=== PATIENT | female | born 1945 ===

== ENCOUNTER 2018-06-11 10:55 | Observation (INO) | payer OTHER, SELFPAY ==
[2018-06-11 11:50] LABS: BASO # 0.1 K/uL (0.0-0.2); EOS # 0.3 K/uL (0.0-0.7); EOS % 5.4 % (0.0-4.0); HEMOGLOBIN 13.3 g/dL (12.0-16.0); LYMPH # 2.6 K/uL (1.0-4.3); LYMPH % 45.9 % (20.0-40.0); MEAN CELL VOLUME 92.2 fl (81.0-99.0); MEAN CORPUSCULAR HEMOGLOBIN 30.9 pg (27.0-31.0); MEAN CORPUSCULAR HGB CONC 33.5 g/dL (33.0-37.0); MEAN PLATELET VOLUME 8.6 fl (7.2-11.7); MONO # 0.3 K/uL (0.0-0.8); MONO % 5.9 % (0.0-10.0); NEUT # 2.4 K/uL (1.8-7.0); NEUT % 41.8 % (50.0-75.0); NRBC % 0.1 % (0.0-0.0); RBC 4.32 Mil/uL (3.80-5.20); RED CELL DISTRIBUTION WIDTH 15.1 % (11.5-14.5); WHITE BLOOD COUNT 5.7 K/uL (4.8-10.8)
[2018-06-11 12:03] LABS: ALB/GLOB RATIO 1.4 (1.0-2.1); ALBUMIN 4.4 g/dL (3.5-5.0); ALT/SGPT 40 U/L (9-52); AST/SGOT 43 U/L (14-36); BLOOD UREA NITROGEN 23 mg/dl (7-17); CALCIUM 9.5 mg/dL (8.4-10.2); GFR AFRICAN-AMERICAN > 60; GFR NON-AFRICAN AMERICAN > 60
--- NOTE | 2018-06-11 13:17 | ED PDOC ---
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 Patient is currently complaining of generalized weakness. Upon arrival to ED patient's pulse is normal currently in the 60s. Patient does report having palpitations yesterday. No further medical complaints. PMD: [facility] Past Medical History Reviewed: Historical Data, Nursing Documentation, Vital Signs Vital Signs: Last Vital Signs Temp 97.6 F 06/13/18 12:00 Pulse 57 L 06/13/18 12:00 Resp 20 06/13/18 12:00 BP 132/72 06/13/18 12:00 Pulse Ox 97 06/14/18 19:28 - Medical History PMH: HTN Other PMH: varicose veins - Surgical History Surgical History: No Surg Hx - Family History Family History: States: Unknown Family Hx - Social History Current smoker - smoking cessation education provided: No Alcohol: None Drugs: Denies - Home Medications Home Medications: Ambulatory Orders Medication Instructions Recorded Aspirin [Ecotrin] 81 mg PO DAILY 06/11/18 Levothyroxine [Synthroid] 100 mcg PO DAILY@0630 #30 tab 06/13/18 - Allergies Allergies/Adverse Reactions: Allergies Allergy/AdvReac Type Severity Reaction Status Date / Time No Known Allergies Allergy Verified 06/11/18 10:59 Review of Systems ROS Statement: Except As Marked, All Systems Reviewed And Found Negative Constitutional: Positive for: Weakness (generalized) Cardiovascular: Positive for: Palpitations Physical Exam - Reviewed Nursing Documentation Reviewed: Yes Vital Signs Reviewed: Yes - Physical Exam Appears: Positive for: No Acute Distress Head Exam: Positive for: ATRAUMATIC, NORMAL INSPECTION, NORMOCEPHALIC Skin: Positive for: Normal Color, Warm, Dry Eye Exam: Positive for: Normal appearance, EOMI, PERRL ENT: Positive for: Normal ENT Inspection Neck: Positive for: Painless ROM Cardiovascular/Chest: Positive for: Regular Rate, Rhythm. Negative for: Murmur , Bradycardia Respiratory: Positive for: Normal Breath Sounds. Negative for: Respiratory Distress Gastrointestinal/Abdominal: Positive for: Normal Exam, Soft. Negative for: Tenderness Back: Positive for: Normal Inspection Extremity: Positive for: Normal ROM (upper and lower extremities). Negative for : Deformity, Swelling Neurologic/Psych: Positive for: Alert, Oriented. Negative for: Motor/Sensory Deficits - Laboratory Results Result Diagrams: 06/11/18 11:42 06/13/18 05:25 - ECG O2 Sat by Pulse Oximetry: 97 (RA) Pulse Ox Interpretation: Normal Medical Decision Making Medical Decision Making: Time: 11:21 Initial Impression: bradycardia r/o cardiac arrhythmia. Initial Plan: --EKG --CMP --Troponin --CBC w/ differential --Reevaluation EKG: Sinus rhythm @ 63bpm w/ premature atrial complexes. cxr apppears no infiltrate 14:35 -Labs reviewed and showed no clinical significant abnormalities. Patient is medically stable however will admit for observation to family practice for observation for malignant arrythmia. pt and family requesting Dr Maritza Gee as cardiology consult. ----- Scribe Attestation: Documented by Vincent Williamson, acting as a scribe for Lindsey Balderas MD. Provider Scribe Attestation: All medical record entries made by the Scribe were at my direction and personally dictated by me. I have reviewed the chart and agree that the record accurately reflects my personal performance of the history, physical exam, medical decision making, and the department course for this patient. I have also personally directed, reviewed, and agree with the discharge instructions and disposition. Disposition - Clinical Impression Clinical Impression: Palpitations - Patient ED Disposition Is Patient to be Admitted: Yes Counseled Patient/Family Regarding: Studies Performed, Diagnosis - Disposition Disposition Time: 14:30 Condition: STABLE
--- NOTE | 2018-06-11 15:26 | RAD ---
Date of service: 06/11/2018 HISTORY: weakness COMPARISON: No prior. FINDINGS: LUNGS: No active pulmonary disease. PLEURA: No significant pleural effusion identified, no pneumothorax apparent. CARDIOVASCULAR: No radiographic findings to suggest acute or significant cardiovascular disease. OSSEOUS STRUCTURES: No significant abnormalities. VISUALIZED UPPER ABDOMEN: Normal. OTHER FINDINGS: None. IMPRESSION: No active disease.
--- NOTE | 2018-06-11 15:53 | CP.PCM.HP ---
History of Present Illness - History of Present Illness History of Present Illness: This is 72 y/o female with PMH of Varicose veins, Arrhythmia and palpitations admitted to [facility] for evaluation and treatment of bradycardia/arrhythmia. Patient was sent to the ER by PMD after she was found to have bradycardia (HR 60 ) and inverted QRS in lead II. As per patient, she is having palpitations since last 3 days, with 1 episode of SOB and mild chest pain 3 day ago which resolved after few mins. Denies any dizziness, fatigue, LOC, trauma, f/c/n/v/d, or weakness. Patient is recently moved to [facility] 6 weeks ago from [facility], reports having occasional palpitations since last 1 year but this is her first episode of palpitations after she arrived to the [facility]. Patient has seen a Explosives Mixer Operator in [facility] who started her on Metropolol tartrate 25mg and ASA. - Patient is Macedonian speaking: [employer] #[id number] PMD: [facility] PMH: Varicose veins, Arrhythmia and palpitations PSH: Denies Meds: Metropolol tartrate 25mg and ASA Allg: NKDA FH: Denies any family history of heart conditions SH: former smoker, quit 20 yrs ago, used to smoke 6 cig/day. denies any alcohol or illicit drug use OBGYN: , 4xNVD, Post-menopausal ROS: As per HPI ER Course: VS: 97.7 tm, HR 69, RR 18, 150/68, Spo2 97% EKG: Prelim: Premature Atrial complexes, incomplete RBBB, low voltage QRS CXR: No active disease Troponin negative x1 CBC: WNL CMP: Only significant for BUN 23 and AST 43 COnsult: Dr. Gee, cardiology Present on Admission - Present on Admission Any Indicators Present on Admission: No Past Patient History - Past Social History Alcohol: None Drugs: Denies - CARDIAC Hx Hypertension: Yes - PSYCHIATRIC Hx Substance Use: No Meds Allergies/Adverse Reactions: Allergies Allergy/AdvReac Type Severity Reaction Status Date / Time No Known Allergies Allergy Verified 06/11/18 10:59 Physical Exam - Constitutional Appears: No Acute Distress - Head Exam Head Exam: ATRAUMATIC, NORMAL INSPECTION - Eye Exam Eye Exam: EOMI, Normal appearance, PERRL Pupil Exam: NORMAL ACCOMODATION - ENT Exam ENT Exam: Mucous Membranes Moist - Neck Exam Neck exam: Positive for: Normal Inspection - Respiratory Exam Respiratory Exam: Clear to Auscultation Bilateral, NORMAL BREATHING PATTERN. absent: Accessory Muscle Use, Chest Wall Tenderness, Decreased Breath Sounds, Prolonged Expiratory Phase, Rales, Rhonchi, Wheezes, Respiratory Distress, Stridor - Cardiovascular Exam Cardiovascular Exam: REGULAR RHYTHM, Systolic Murmur. absent: JVD - GI/Abdominal Exam GI & Abdominal Exam: Normal Bowel Sounds, Soft. absent: Distended, Organomegaly , Rebound, Rigid, Tenderness - Extremities Exam Extremities exam: Positive for: full ROM, normal capillary refill, normal inspection, pedal pulses present. Negative for: joint swelling, pedal edema, tenderness Additional comments: Varicose vein b/l LEs - Back Exam Back exam: NORMAL INSPECTION. absent: CVA tenderness (L), CVA tenderness (R) - Neurological Exam Neurological exam: Alert, CN II-XII Intact, Normal Gait, Oriented x3 - Psychiatric Exam Psychiatric exam: Normal Affect, Normal Mood - Skin Skin Exam: Dry, Intact, Normal Color, Warm Results - Vital Signs Recent Vital Signs: Last Vital Signs Temp 97.7 F 06/11/18 11:02 Pulse 61 06/11/18 13:50 Resp 16 06/11/18 13:50 BP 144/80 06/11/18 13:50 Pulse Ox 97 06/11/18 14:51 - Labs Result Diagrams: 06/11/18 11:42 06/11/18 11:42 Labs: Laboratory Results - last 24 hr 06/11/18 06/11/18 11:42 11:42 WBC 5.7 RBC 4.32 Hgb 13.3 Hct 39.8 MCV 92.2 MCH 30.9 MCHC 33.5 RDW 15.1 H Plt Count 273 MPV 8.6 Neut % (Auto) 41.8 L Lymph % (Auto) 45.9 H [place] % (Auto) 5.9 Eos % (Auto) 5.4 H Baso % (Auto) 1.0 Neut # (Auto) 2.4 Lymph # (Auto) 2.6 [place] # (Auto) 0.3 Eos # (Auto) 0.3 Baso # (Auto) 0.1 Sodium 141 Potassium 4.4 Chloride 104 Carbon Dioxide 27 Anion Gap 14 BUN 23 H Creatinine 0.9 Est GFR ( Amer) > 60 Est GFR (Non-Af Amer) > 60 Random Glucose 104 Calcium 9.5 Total Bilirubin 0.7 AST 43 H ALT 40 Alkaline Phosphatase 82 Troponin I < 0.0120 Total Protein 7.6 Albumin 4.4 Globulin 3.2 Albumin/Globulin Ratio 1.4 Assessment & Plan - Assessment and Plan (Free Text) Assessment: A/P: 72 y/o female with PMH of Varicose veins, Arrhythmia and palpitations admitted to [facility] for evaluation and treatment of bradycardia/arrhythmia. Bradycardia, palpitations possibly due to underlining Arrhythmia - Chronic - EKG: Prelim: Premature Atrial complexes, incomplete RBBB, low voltage QRS - CXR: No active disease - No bradycardia in the ER - Consult, Dr. Maritza Gee, Cardiology, will follow recommendations - Telemetry monitoring - Metoprolol held, C/w ASA 81mg daily - Follow up TSH - Follow up Echo and morning EKG DVT Prophylaxis - Lovenox 40mg SC daily Full Code Emergency Contact: Brother, Mr Scott Hatch # [phone]
[2018-06-11 18:55] LABS: SQUAMOUS EPITHIAL < 1 /hpf (0-5)
[2018-06-11 19:18] LABS: PH,URINE 7.5 (5.0-8.0); URINE BILIRUBIN NEGATIVE (NEGATIVE); URINE BLOOD TRACE (NEGATIVE); URINE CLARITY Clear (Clear); URINE COLOR LIGHT YELLOW (YELLOW); URINE GLUCOSE (UA) NEGATIVE (Normal); URINE LEUKOCYTE ESTERASE NEGATIVE Leu/uL (Negative); URINE PROTEIN NEGATIVE (NEGATIVE); URINE UROBILINOGEN 0.2 mg/dL (0.2-1.0)
--- NOTE | 2018-06-11 22:33 | CARD ---
APPROVED REPORT Date of service: 06/11/2018 <Conclusion> Sinus rhythm with premature atrial complexes Low voltage QRS Incomplete right bundle branch block Left anterior fascicular block Abnormal ECG
[2018-06-12] MEDS ORDERED: Pneumococcal 23-Valent Vaccine IM ONE (06:30)
[2018-06-12] MEDS: Enoxaparin 40 mg Syringe SC SCH (08:36)
--- NOTE | 2018-06-12 10:55 | CARD ---
APPROVED REPORT Date of service: 06/12/2018 EXAM: Two-dimensional and M-mode echocardiogram with Doppler and color Doppler. Other Information Quality : GoodRhythm : NSR INDICATION Abnormal EKG/Arrhythmia Palpitations 2D DIMENSIONS IVSd0.82 (0.7-1.1cm)LVDd4.59 (3.9-5.9cm) LVOT Diameter2.03 (1.8-2.4cm)PWd0.66 (0.7-1.1cm) IVSs1.43 (0.8-1.2cm)LVDs2.63 (2.5-4.0cm) FS (%) 42.8 %PWs1.13 (0.8-1.2cm) M-Mode DIMENSIONS Left Atrium (MM)4.03 (2.5-4.0cm)IVSd0.80 (0.7-1.1cm) Aortic Root3.06 (2.2-3.7cm)LVDd5.49 (4.0-5.6cm) Aortic Cusp Exc.1.76 (1.5-2.0cm)PWd1.10 (0.7-1.1cm) IVSs1.38 cmFS (%) 62 % LVDs2.10 (2.0-3.8cm)PWs1.79 cm Aortic Valve AoV Peak Odaxjcqr440.9cm/sAoV VTI21.8cmAO Peak GR.6mmHg LVOT Peak Mpdyxavc67.5cm/sLVOT VTI17.93cmAO Mean GR.3mmHg KENZIE (VMAX)1.87bb8OKR (VTI)1.62cm2 Mitral Valve MV E Kculafva52.4cm/sMV DECEL ODPP633uvFS A Karkfccq39.9cm/s MV GCF18efW/A ratio0.8MVA (PHT)2.93cm2 TDI Lateral E' Peak V7.25cm/sMedial E' Peak V6.36cm/sE/Lateral E'8.1 E/Medial E'9.2 Pulmonary Valve PV Peak Nrnhqjhr92.4cm/s Tricuspid Valve TR Peak Jlnuzcmy103lk/sRAP URQOFJPF17pbJoIP Peak Gr.20mmHg XINX71phBp LEFT VENTRICLE The left ventricle is normal size. There is normal left ventricular wall thickness. Left ventricle systolic function is hyperdynamic The Ejection Fraction is >70%. Hyperdynamic wall motion The left ventricular diastolic function is normal. RIGHT VENTRICLE The right ventricle is normal size. There is normal right ventricular wall thickness. The right ventricular systolic function is normal. ATRIA The left atrium is borderline dilated. The right atrium size is normal. AORTIC VALVE The aortic valve is normal in structure. No aortic regurgitation is present. There is no aortic valvular stenosis. MITRAL VALVE Part of posterior mitral leaflet prolapses into Lt atrium during systole. There is no mitral valve stenosis. Mitral regurgitation is moderate. TRICUSPID VALVE The tricuspid valve is normal in structure. There is no tricuspid valve regurgitation noted. PULMONIC VALVE The pulmonary valve is normal in structure. There is no pulmonic valvular regurgitation. GREAT VESSELS The aortic root is normal in size. The IVC is normal in size and collapses >50% with inspiration. PERICARDIAL EFFUSION The pericardium appears normal. <Conclusion> The left ventricle is normal size. There is normal left ventricular wall thickness. Hyperdynamic wall motion Left ventricle systolic function is hyperdynamic The Ejection Fraction is >70%. The left ventricular diastolic function is normal. Part of posterior mitral leaflet prolapses into Lt atrium during systole. Mitral regurgitation is moderate.
--- NOTE | 2018-06-12 11:03 | CP.PCM.CON ---
History of Present Illness - History of Present Illness History of Present Illness: This 72-year-old female [place] reports occasional brief periods of palpitations the longest of which lasting approximately 30 minutes occurred 3 months back. She gives history of having had a syncopal episode while cooking in the kitchen when she suddenly woke up on the floor without recalling events preceding it. There were no lateralizing symptoms associated with her syncopal episode. There has never been a similar occurrence before or since. The patient appears to have good effort tolerance in that she gets out of her house in the morning and tends to her needs and eventually returns at the end of the day without any shortness of breath or certain fatigue or dizzy spells. She is not a smoker or diabetic and had no history of hypertension before. She was started on a beta catherine of which she takes 12.5 mg of metoprolol a day after she complained of palpitations few months back. There is no other significant past or family history. Physical examination shows an elderly pleasant female who is quite alert awake coherent and afebrile. Her telemetry does not show any significant tachycardia arrhythmias she has periods of sinus bradycardia as low as 52 bpm during sleep. Her blood pressure was 144/70 mmHg. Her jugular venous pressure was not elevated and there was no edema over lower extremity. The pedal pulses were well felt. There were no carotid bruits. The apex was not palpable the first and second heart sounds were normal a very brief apical systolic murmur was audible there was no S3 gallop and there were no rales. Abdomen was soft and liver and spleen are not palpable. Her electro-cardial gram showed sinus rhythm at 63 bpm with left axis deviation and an incomplete right bundle branch block. Her lab data showed a markedly elevated TSH at 77 units. Otherwise her lab tests were unremarkable. Her echocardiogram shows preserved left ventricular systolic function with evidence off a prolapsing posterior mitral leaflet with moderate mitral regurgitation. Impression: Intermittent palpitations in the patient with prolapsed mitral valve and a single syncopal episode. Hypothyroidism. The patient should undergo DANIEL to fully evaluate the findings described above on a transthoracic echocardiogram. Otherwise the patient appears hemodynamically stable and no immediate intervention need be undertaken. She will need to be evaluated for significant hypothyroidism. I have discussed her case with her resident. Past Patient History - Past Medical History & Family History Past Medical History?: Yes - Past Social History Smoking Status: Former Smoker - CARDIAC Hx Cardiac Disorders: Yes (HTN) Hx Hypertension: Yes - PULMONARY Hx Respiratory Disorders: No - NEUROLOGICAL Hx Neurological Disorder: No - HEENT Hx HEENT Problems: No - RENAL Hx Chronic Kidney Disease: No - ENDOCRINE/METABOLIC Hx Endocrine Disorders: No - HEMATOLOGICAL/ONCOLOGICAL Hx Blood Disorders: No - INTEGUMENTARY Hx Dermatological Problems: No - MUSCULOSKELETAL/RHEUMATOLOGICAL Hx Musculoskeletal Disorders: No Hx Falls: No - GASTROINTESTINAL Hx Gastrointestinal Disorders: No - GENITOURINARY/GYNECOLOGICAL Hx Genitourinary Disorders: No - PSYCHIATRIC Hx Psychophysiologic Disorder: No Hx Substance Use: No - SURGICAL HISTORY Hx Surgeries: No - ANESTHESIA Hx Anesthesia: No Hx Anesthesia Reactions: No Hx Malignant Hyperthermia: No Meds Allergies/Adverse Reactions: Allergies Allergy/AdvReac Type Severity Reaction Status Date / Time No Known Allergies Allergy Verified 06/11/18 10:59 - Medications Medications: Current Medications Aspirin (Ecotrin) 81 mg PO DAILY [facility] Last Admin: 06/12/18 08:36 Dose: 81 mg Enoxaparin Sodium (Lovenox) 40 mg SC DAILY [facility] PRN Reason: Protocol Last Admin: 06/12/18 08:36 Dose: 40 mg Results - Vital Signs Recent Vital Signs: Last Vital Signs Temp 97.9 F 06/12/18 08:00 Pulse 58 L 06/12/18 09:00 Resp 20 06/12/18 08:00 BP 128/69 06/12/18 08:00 Pulse Ox 96 06/12/18 08:00 - Labs Result Diagrams: 06/11/18 11:42 06/11/18 11:42 Labs: Laboratory Results - last 24 hr 06/11/18 06/11/18 06/11/18 11:42 11:42 18:00 WBC 5.7 RBC 4.32 Hgb 13.3 Hct 39.8 MCV 92.2 MCH 30.9 MCHC 33.5 RDW 15.1 H Plt Count 273 MPV 8.6 Neut % (Auto) 41.8 L Lymph % (Auto) 45.9 H [place] % (Auto) 5.9 Eos % (Auto) 5.4 H Baso % (Auto) 1.0 Neut # (Auto) 2.4 Lymph # (Auto) 2.6 [place] # (Auto) 0.3 Eos # (Auto) 0.3 Baso # (Auto) 0.1 Sodium 141 Potassium 4.4 Chloride 104 Carbon Dioxide 27 Anion Gap 14 BUN 23 H Creatinine 0.9 Est GFR ( Amer) > 60 Est GFR (Non-Af Amer) > 60 Random Glucose 104 Calcium 9.5 Total Bilirubin 0.7 AST 43 H ALT 40 Alkaline Phosphatase 82 Troponin I < 0.0120 Total Protein 7.6 Albumin 4.4 Globulin 3.2 Albumin/Globulin Ratio 1.4 Triglycerides Cholesterol LDL Cholesterol Direct HDL Cholesterol Free T4 TSH 3rd Generation Urine Color Light yellow Urine Clarity Clear Urine pH 7.5 Ur Specific Standard 1.010 Urine Protein Negative Urine Glucose (UA) Negative Urine Ketones Negative Urine Blood Trace H Urine Nitrate Negative Urine Bilirubin Negative Urine Urobilinogen 0.2 Ur Leukocyte Esterase Negative Urine RBC (Auto) 3 Urine Microscopic WBC < 1 Ur Squamous Epith Cells < 1 06/12/18 06/12/18 05:40 09:53 WBC RBC Hgb Hct MCV MCH MCHC RDW Plt Count MPV Neut % (Auto) Lymph % (Auto) [place] % (Auto) Eos % (Auto) Baso % (Auto) Neut # (Auto) Lymph # (Auto) [place] # (Auto) Eos # (Auto) Baso # (Auto) Sodium Potassium Chloride Carbon Dioxide Anion Gap BUN Creatinine Est GFR ( Amer) Est GFR (Non-Af Amer) Random Glucose Calcium Total Bilirubin AST ALT Alkaline Phosphatase Troponin I Total Protein Albumin Globulin Albumin/Globulin Ratio Triglycerides 131 Cholesterol 251 H LDL Cholesterol Direct 159 H HDL Cholesterol 49 Free T4 0.26 L TSH 3rd Generation 77.10 H Urine Color Urine Clarity Urine pH Ur Specific Standard Urine Protein Urine Glucose (UA) Urine Ketones Urine Blood Urine Nitrate Urine Bilirubin Urine Urobilinogen Ur Leukocyte Esterase Urine RBC (Auto) Urine Microscopic WBC Ur Squamous Epith Cells
--- NOTE | 2018-06-12 11:06 | CP.PCM.PN ---
Subjective - Date & Time of Evaluation Date of Evaluation: 06/12/18 Time of Evaluation: 07:30 - Subjective Subjective: Patient seen and examined this morning, NAD. Reports occasional palpitations, but denies any chest pain, SOB, dizziness, lightheadedness, blurred vision, abdominal pain, urinary symptoms, fatigue or f/c/n/v/d/c. Tolerating PO intake, ambulating. Objective - Vital Signs/Intake and Output Vital Signs (last 24 hours): Temp Pulse Resp BP Pulse Ox 97.9 F 58 L 20 128/69 96 06/12/18 08:00 06/12/18 09:00 06/12/18 08:00 06/12/18 08:00 06/12/18 08:00 - Medications Medications: Current Medications Aspirin (Ecotrin) 81 mg PO DAILY [facility] Last Admin: 06/12/18 08:36 Dose: 81 mg Enoxaparin Sodium (Lovenox) 40 mg SC DAILY [facility] PRN Reason: Protocol Last Admin: 06/12/18 08:36 Dose: 40 mg - Labs Labs: 06/11/18 11:42 06/11/18 11:42 - Constitutional Appears: No Acute Distress - Head Exam Head Exam: NORMAL INSPECTION - Eye Exam Eye Exam: EOMI, Normal appearance Pupil Exam: NORMAL ACCOMODATION - ENT Exam ENT Exam: Mucous Membranes Moist, Normal Exam - Neck Exam Neck Exam: Full ROM, Normal Inspection - Respiratory Exam Respiratory Exam: Clear to Ausculation Bilateral, NORMAL BREATHING PATTERN. absent: Accessory Muscle Use, Prolonged Expiratory Phase, Respiratory Distress - Cardiovascular Exam Cardiovascular Exam: REGULAR RHYTHM, +S1, +S2 - GI/Abdominal Exam GI & Abdominal Exam: Soft, Normal Bowel Sounds. absent: Guarding, Rigid, Tenderness, Rebound - Extremities Exam Extremities Exam: Full ROM, Normal Capillary Refill, Normal Inspection. absent : Joint Swelling, Pedal Edema, Tenderness - Back Exam Back Exam: NORMAL INSPECTION. absent: CVA tenderness (L), CVA tenderness (R) - Neurological Exam Neurological Exam: Alert, Awake, CN II-XII Intact, Normal Gait, Oriented x3 Neuro motor strength exam: Left Upper Extremity: 5, Right Upper Extremity: 5, Left Lower Extremity: 5, Right Lower Extremity: 5 - Psychiatric Exam Psychiatric exam: Normal Affect - Skin Skin Exam: Dry, Intact, Normal Color, Warm Assessment and Plan - Assessment and Plan (Free Text) Assessment: A/P: 72 y/o female with PMH of Varicose veins, Arrhythmia and palpitations admitted to [facility] for evaluation and treatment of bradycardia/arrhythmia. Bradycardia, Palpitations possibly due to prolapsed mitral valve - Consult, Dr. Maritza Gee, Cardiology, recommendations appreciated: Recos DANIEL for further management - ECHO: mitral valve regur and prolapse, EF >70 - Metoprolol held, C/w ASA 81mg daily - TSH: 77.10 - Follow up EKG, continue tele monitoring - Follow up DANIEL Hypothyroidism - TSH: 77.10, FT4 0.26 - Consult, Dr. Evans, Endocrine, will follow recommendations DVT Prophylaxis - Lovenox 40mg SC daily Full Code Emergency Contact: Brother, Mr Scott Hatch # [phone]
[2018-06-13] MEDS ORDERED: Levothyroxine 75 MCG TAB PO SCH (06:30)
[2018-06-13 07:00] LABS: ALB/GLOB RATIO 1.3 (1.0-2.1); ALBUMIN 3.9 g/dL (3.5-5.0); ALT/SGPT 46 U/L (9-52); AST/SGOT 48 U/L (14-36); BLOOD UREA NITROGEN 23 mg/dl (7-17); CALCIUM 9.5 mg/dL (8.4-10.2); GFR AFRICAN-AMERICAN > 60; GFR NON-AFRICAN AMERICAN 55
[2018-06-13 07:12] LABS: T4 2.82 ug/dl (5.5-11.0)
[2018-06-13 08:22] VITALS: RESP 20
[2018-06-13] MEDS: Enoxaparin 40 mg Syringe SC SCH (09:41)
--- NOTE | 2018-06-13 10:06 | CON ---
Copied To: Kirsten Evans MD Attending MD: Kirsten Evans MD DATE: 06/12/2018 ENDOCRINOLOGY CONSULT LOCATION: Room 406. HISTORY OF PRESENT ILLNESS: This is a 72-year-old female with known history of recent arrhythmia and intermittent palpitations, presenting here with progressive shortness of breath and worsening palpitations and was evaluated to have sinus bradycardia and also abnormal thyroid studies and is being referred now for endocrine evaluation and management. 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 No known thyroid endocrinopathy. FAMILY HISTORY: Positive for hypertension and heart disease but no known thyroid disorder. SOCIAL HISTORY: She is a former smoker but quit many years ago and has a supportive family otherwise and is a recent migrant from [facility]. REVIEW OF SYSTEMS: Admits to episodic bouts of dizziness and lightheadedness with generalized body weakness and suboptimal energy level. No chest pains but admits to episodic palpitations, especially on exertion with episodic bouts of shortness of breath. Her oral intake has been variable with nausea, dyspepsia, and habitual constipation. PHYSICAL EXAMINATION: GENERAL: An average-built female, in no apparent distress. VITAL SIGNS: Blood pressure of 140/80; pulse of 60 beats per minute, regular; temperature 98; respirations 20; height is 5 feet 2 inches, weight is 140 pounds. HEENT: Head normocephalic. Eyes, anicteric with pink conjunctivae. Funduscopy not possible at this time. Ears, nose and throat otherwise normal. NECK: Supple. Thyroid gland is firm and nontender with no overt palpable nodules with no cervical adenopathy. HEART: Adynamic precordium. S1 and S2 are slow and regular. LUNGS: Clear to auscultation. ABDOMEN: Flat, soft with positive bowel sounds. EXTREMITIES: No peripheral edema. Pulses are +2 bilaterally. LABORATORY DATA: Her chemistry showed a BUN of 23, sodium 141, potassium 4.4, chloride 104, CO2 of 27, glucose 104, and creatinine 0.9. Her cholesterol levels are 251 with triglycerides of 131. The thyroid studies showed a free T4 of 0.26 with a TSH of 77.1. ASSESSMENT: This is a 72-year-old female with overt hypothyroidism both historically, clinically, and biochemically most likely related to underlying autoimmune thyroiditis with concomitant sinus bradycardia. Palpitations were most likely related to underlying premature atrial contractions, and we can also find palpitations and precordial chest pain in both hypo or hyperthyroidism. She also has underlying small nodular goiter with no overt palpable nodules at this time. PLAN OF MANAGEMENT: We will initiate levothyroxine therapy at 75 mcg daily to start tomorrow morning and we will titrate incremental as indicated to optimize metabolic control. We will also obtain a comprehensive thyroid hormone profile with a total and free T4 and TSH and will include thyroid antibodies with a thyroid peroxidase and thyroglobulin antibody to confirm and/or indicate the presence of underlying thyroid autoimmunity. The patient should be advised that this will be lifelong medical therapy with levothyroxine replacement and that this medication is very affordable, costing only 10 dollars for a 3-month supply [facility] or [email or web address] Kirsten Evans MD
--- NOTE | 2018-06-13 12:55 | CP.PCM.DIS ---
Provider - Provider Date of Admission: 06/11/18 14:34 Attending physician: Maddy Polanco MD Primary care physician: OCTAVIO, Dr. Beaulieu Consults: Cardiology, Dr. Maritza Gee Endocrine, Dr. Evans Time Spent in preparation of Discharge (in minutes): 40 Diagnosis - Discharge Diagnosis (1) Mitral valve prolapse Status: Acute Comment: ECHO:(06/12/18) mitral valve regur and prolapse, EF >70. Needs DANIEL for further management (Referral given to the patient) (2) Severe hypothyroidism Status: Acute Comment: Rx for Levothyroxine 100mcg daily (3) Bradycardia Status: Acute Comment: Hold Metoprolol Hospital Course - Lab Results Lab Results: Most Recent Lab Values WBC 5.7 K/uL (4.8-10.8) 06/11/18 11:42 RBC 4.32 Mil/uL (3.80-5.20) 06/11/18 11:42 Hgb 13.3 g/dL (12.0-16.0) 06/11/18 11:42 Hct 39.8 % (34.0-47.0) 06/11/18 11:42 MCV 92.2 fl (81.0-99.0) 06/11/18 11:42 MCH 30.9 pg (27.0-31.0) 06/11/18 11:42 MCHC 33.5 g/dL (33.0-37.0) 06/11/18 11:42 RDW 15.1 % (11.5-14.5) H 06/11/18 11:42 Plt Count 273 K/uL (130-400) 06/11/18 11:42 MPV 8.6 fl (7.2-11.7) 06/11/18 11:42 Neut % (Auto) 41.8 % (50.0-75.0) L 06/11/18 11:42 Lymph % (Auto) 45.9 % (20.0-40.0) H 06/11/18 11:42 [place] % (Auto) 5.9 % (0.0-10.0) 06/11/18 11:42 Eos % (Auto) 5.4 % (0.0-4.0) H 06/11/18 11:42 Baso % (Auto) 1.0 % (0.0-2.0) 06/11/18 11:42 Neut # (Auto) 2.4 K/uL (1.8-7.0) 06/11/18 11:42 Lymph # (Auto) 2.6 K/uL (1.0-4.3) 06/11/18 11:42 [place] # (Auto) 0.3 K/uL (0.0-0.8) 06/11/18 11:42 Eos # (Auto) 0.3 K/uL (0.0-0.7) 06/11/18 11:42 Baso # (Auto) 0.1 K/uL (0.0-0.2) 06/11/18 11:42 Sodium 139 mmol/l (132-148) 06/13/18 05:25 Potassium 4.7 MMOL/L (3.6-5.0) 06/13/18 05:25 Chloride 104 mmol/L (98-107) 06/13/18 05:25 Carbon Dioxide 26 mmol/L (22-30) 06/13/18 05:25 Anion Gap 14 (10-20) 06/13/18 05:25 BUN 23 mg/dl (7-17) H 06/13/18 05:25 Creatinine 1.0 mg/dl (0.7-1.2) 06/13/18 05:25 Est GFR ( Amer) > 60 06/13/18 05:25 Est GFR (Non-Af Amer) 55 06/13/18 05:25 Random Glucose 86 mg/dL (65-105) 06/13/18 05:25 Hemoglobin A1c 5.9 % (4.2-6.5) 06/12/18 05:40 Calcium 9.5 mg/dL (8.4-10.2) 06/13/18 05:25 Total Bilirubin 0.6 mg/dl (0.2-1.3) 06/13/18 05:25 AST 48 U/L (14-36) H 06/13/18 05:25 ALT 46 U/L (9-52) 06/13/18 05:25 Alkaline Phosphatase 78 U/L (38-126) 06/13/18 05:25 Troponin I < 0.0120 ng/mL (0.00-0.120) 06/11/18 11:42 Total Protein 6.8 G/DL (6.3-8.2) 06/13/18 05:25 Albumin 3.9 g/dL (3.5-5.0) 06/13/18 05:25 Globulin 2.9 gm/dL (2.2-3.9) 06/13/18 05:25 Albumin/Globulin Ratio 1.3 (1.0-2.1) 06/13/18 05:25 Triglycerides 131 mg/DL (0-149) 06/12/18 05:40 Cholesterol 251 mg/dL (0-199) H 06/12/18 05:40 LDL Cholesterol Direct 159 mg/dL (0-129) H 06/12/18 05:40 HDL Cholesterol 49 MG/DL (30-70) 06/12/18 05:40 Free T4 0.26 ng/dL (0.78-2.19) L 06/12/18 09:53 Thyroxine (T4) 2.82 ug/dl (5.5-11.0) L 06/13/18 05:25 Free T3 pg/mL 2.41 pg/mL (2.77-5.27) L 06/12/18 09:53 TSH 3rd Generation 56.10 mIU/ML (0.46-4.68) H 06/13/18 05:25 Urine Color Light yellow (YELLOW) 06/11/18 18:00 Urine Clarity Clear (Clear) 06/11/18 18:00 Urine pH 7.5 (5.0-8.0) 06/11/18 18:00 Ur Specific [place] 1.010 (1.003-1.030) 06/11/18 18:00 Urine Protein Negative mg/dL (NEGATIVE) 06/11/18 18:00 Urine Glucose (UA) Negative mg/dL (Normal) 06/11/18 18:00 Urine Ketones Negative mg/dL (NEGATIVE) 06/11/18 18:00 Urine Blood Trace (NEGATIVE) H 06/11/18 18:00 Urine Nitrate Negative (NEGATIVE) 06/11/18 18:00 Urine Bilirubin Negative (NEGATIVE) 06/11/18 18:00 Urine Urobilinogen 0.2 mg/dL (0.2-1.0) 06/11/18 18:00 Ur Leukocyte Esterase Negative [place]/uL (Negative) 06/11/18 18:00 Urine RBC (Auto) 3 /hpf (0-3) 06/11/18 18:00 Urine Microscopic WBC < 1 /hpf (0-5) 06/11/18 18:00 Ur Squamous Epith Cells < 1 /hpf (0-5) 06/11/18 18:00 - Hospital Course Hospital Course: 72 y/o female with PMH of Varicose veins, Arrhythmia and palpitations admitted to [facility] for evaluation and treatment of bradycardia/arrhythmia. Patient remained stable after admission, Cardiology, Dr. Gee was consulted who recommended DANIEL as outpatient after Echo showed mitral valve regur and prolapse , EF >70. Endocrine, Dr. Evans was consulted after TSH 77.10 and FT4 0.26 who recommended Thyroglobulin Abs, Thyroid peroxide Ab, Levothyroxin 100mcg daily and outpatient PMD follow up for dose adjustment. ASCVD score 7.1, patient was instructed to stop her home Metoprolol. ER precautions discussed with patient. Follow up: Thyroglobulin Abs, Thyroid peroxide Ab. DANIEL referral given to patient Medications: STOP Metoprolol, Continue Levothyroxin 100mcg daily and Aspirin Discharge Exam - Head Exam Head Exam: NORMAL INSPECTION - Eye Exam Eye Exam: Normal appearance - Respiratory Exam Respiratory Exam: Clear to PA & Lateral, NORMAL BREATHING PATTERN. absent: Chest Wall Tenderness, Wheezes, Respiratory Distress - Cardiovascular Exam Cardiovascular Exam: REGULAR RHYTHM - GI/Abdominal Exam GI & Abdominal Exam: Normal Bowel Sounds, Unremarkable - Back Exam Back exam: absent: CVA tenderness (L), CVA tenderness (R) - Neurological Exam Neurological exam: Alert, CN II-XII Intact, Oriented x3, Reflexes Normal - Psychiatric Exam Psychiatric exam: Normal Affect - Skin Skin Exam: Dry, Normal Color, Warm Discharge Plan - Discharge Medications Prescriptions: Levothyroxine [Synthroid] 100 mcg PO DAILY@0630 #30 tab - Follow Up Plan Condition: GOOD Disposition: HOME/ ROUTINE Instructions: Mitral Valve Prolapse, Hypothyroidism (Underactive Thyroid), Arrhythmias, Bradycardia Additional Instructions: Follow up with Dr. Maritza Blue on 06/22/18 at 11:00am DANIEL referral given for outpatient C/w Levothyroxine 100mcg daily Referrals: Matt Blue MD [Resident] -
[2018-06-13 13:55] VITALS: BP 132/72; PULSE 57; TEMP 97.6
[2018-06-14] MEDS ORDERED: Levothyroxine 100 MCG TAB PO SCH (06:30)
--- NOTE | 2018-06-14 18:59 | CARD ---
APPROVED REPORT Date of service: 06/13/2018 EKG Measurement Heart [id number] <Conclusion> Normal sinus rhythm Low voltage QRS Right bundle branch block Left anterior fascicular block Bifascicular block Possible Anterolateral infarct, age undetermined Abnormal ECG
[2018-06-14 19:29] VITALS: O2SAT 97
== END 2018-06-13 14:50 | disposition home or self-care (01) ==
LOC: H.ER 10:55 → H.ERHOLD 14:34 → H.TEL 21:15
PROVIDERS: ADMIT Family Medicine Geriatric Medicine; ATTEND Family Medicine Geriatric Medicine
DX: I34.1 Nonrheumatic mitral (valve) prolapse (principal); I34.0 Nonrheumatic mitral (valve) insufficiency; R00.1 Bradycardia, unspecified; I83.90 Asymptomatic varicose veins of unspecified lower extremity; E03.9 Hypothyroidism, unspecified; Z23 Encounter for immunization; I10 Essential (primary) hypertension; Z87.891 Personal history of nicotine dependence; E04.9 Nontoxic goiter, unspecified; I45.10 Unspecified right bundle-branch block
CPT/HCPCS: 36415; 71045; 80053; 80061; 81003; 82533; 83036; 84436; 84439; 84443; 84481; 84484; 85025; 86376; 86800; 90471; 90732; 93005; 93306; 99285; G0378; J1650

== ENCOUNTER 2018-07-08 09:41 | Day surgery (SDC) | payer SELFPAY ==
[2018-07-08 10:29] VITALS: BMI 24.0
[2018-07-08] MEDS ORDERED: Lactated Ringer's 1,000 ML IV ONE ×2 (11:45→15:55)
[2018-07-08] MEDS ORDERED: Etomidate 20 mg/10ml Inj IV ONE (13:20)
[2018-07-08] MEDS ORDERED: Propofol 10 mg/ml Inj (20 ML) ONE (13:21)
--- NOTE | 2018-07-08 14:55 | CP.PCM.PN ---
Subjective - Date & Time of Evaluation Date of Evaluation: 07/08/18 Time of Evaluation: 14:53 - Subjective Subjective: DANIEL Objective - Vital Signs/Intake and Output Vital Signs (last 24 hours): Temp Pulse Resp BP Pulse Ox 97.5 F L 57 L 18 142/77 100 07/08/18 14:30 07/08/18 14:45 07/08/18 14:45 07/08/18 14:45 07/08/18 14:45 Assessment and Plan - Assessment and Plan (Free Text) Plan: DANIEL REVEALED MILD PARTIAL POSTERIOR MV LEAFLET PROLAPSE WITH MILD MR (NO EVIDENCE OF FLAIR OR RUPTURE. PLEASE NOTE THE PTS EF DURING DANIEL WAS 40% SECONDARY TO PROPOFOL (ON TTE IT WAS 75 AND HYPERDYNAMIC). ALSO PTS HR WAS 60 (ON TTE HR WAS TACHY), PTS BP WAS 118/60. THESE FACTORS MAY BE THE REASON WHY THE MR APPEARS LESS SEVERE THAN IN TTE.
[2018-07-08 15:57] VITALS: RESP 18
[2018-07-08 17:25] VITALS: PULSE 62; O2SAT 96
[2018-07-08 18:26] VITALS: BP 145/66; TEMP 97.5
== END 2018-07-08 19:00 | disposition home or self-care (01) ==
LOC: H.OPSURG 09:41
PROVIDERS: ATTEND Family Medicine
DX: I34.1 Nonrheumatic mitral (valve) prolapse (principal); I34.0 Nonrheumatic mitral (valve) insufficiency
CPT/HCPCS: 82948; 93312; J2001; J2704; J7120

== ENCOUNTER 2018-08-04 07:08 | Emergency (ER) | payer SELFPAY ==
[2018-08-04 07:15] VITALS: RESP 18; BMI 25.4
[2018-08-04] MEDS ORDERED: Sodium Chloride 0.9% 1,000 ML IV STA (07:30)
--- NOTE | 2018-08-04 07:33 | ED PDOC ---
Syncope/Near Syncope/Dizziness Time Seen by Provider: 08/04/18 07:17 Chief Complaint (Provider): syncope History Per: Patient History/Exam Limitations: no limitations Onset/Duration Of Symptoms: Sudden Onset Current Symptoms Are (Timing): Still Present Additional Complaint(s): 72 year old female with pmHx of HTN and thyroid disease, arrives to the ED for an evaluation of dizziness with LOC status post fall earlier this morning, in which, she sustained a head injury. She reports having experienced upper, left abdominal pain with nausea preceding her symptoms. Patient denies any fever, chills, chest pain, or vomiting. PMD: Dr. Katie Mahmood Past Medical History Reviewed: Historical Data, Nursing Documentation, Vital Signs Vital Signs: Last Vital Signs Temp 97.8 F 08/04/18 07:15 Pulse 80 08/04/18 07:15 Resp 18 08/04/18 07:15 BP 147/84 08/04/18 07:15 Pulse Ox 96 08/04/18 07:15 - Medical History PMH: HTN, Mitral Valve Prolapse Denies: Chronic Kidney Disease - Family History Family History: States: Unknown Family Hx - Home Medications Home Medications: Ambulatory Orders Medication Instructions Recorded Aspirin [Ecotrin] 81 mg PO DAILY 06/11/18 Levothyroxine [Synthroid] 100 mcg PO DAILY@0630 #30 tab 06/13/18 - Allergies Allergies/Adverse Reactions: Allergies Allergy/AdvReac Type Severity Reaction Status Date / Time No Known Allergies Allergy Verified 07/08/18 10:29 Review of Systems ROS Statement: Except As Marked, All Systems Reviewed And Found Negative Constitutional: Negative for: Fever, Chills Cardiovascular: Negative for: Chest Pain Gastrointestinal: Positive for: Nausea, Abdominal Pain (upper left). Negative for: Vomiting Neurological: Positive for: Dizziness, Other (head injury; LOC) Physical Exam - Reviewed Nursing Documentation Reviewed: Yes Vital Signs Reviewed: Yes - Physical Exam Appears: Positive for: No Acute Distress Head Exam: Positive for: ATRAUMATIC, NORMAL INSPECTION, NORMOCEPHALIC Eye Exam: Positive for: EOMI, Normal appearance, PERRL Neck: Positive for: Normal, Painless ROM, Supple Cardiovascular/Chest: Positive for: Regular Rate, Rhythm, Chest Non Tender. Negative for: Murmur Respiratory: Positive for: Normal Breath Sounds. Negative for: Decreased Breath Sounds, Wheezing, Respiratory Distress Gastrointestinal/Abdominal: Positive for: Soft, Tenderness (LUQ). Negative for: Mass Extremity: Positive for: Normal ROM (upper/lower). Negative for: Deformity (upper/lower) Neurologic/Psych: Positive for: Alert, venereal disease control head II-XII (grossly intact), Oriented (x3). Negative for: Motor/Sensory Deficits - Laboratory Results Result Diagrams: 08/04/18 07:55 08/04/18 07:55 - ECG O2 Sat by Pulse Oximetry: 96 (RA) Pulse Ox Interpretation: Normal Medical Decision Making Medical Decision Making: Time: 729 Initial Plan: * CT ABD/pelvis * CT head * EKG * Labs * CXR * IV fluid Pt offered 24 hr obs for syncopal episode. W/u thus far neg. Pt prefers to f/u outpt, requesting Dr. Floyd . Discussed with Dr. Floyd, will f/u in office. Scribe Attestation: Documented by Kirsten Arzola, acting as a scribe for Ben Weems MD. Provider Scribe Attestation: All medical record entries made by the Scribe were at my direction and personally dictated by me. I have reviewed the chart and agree that the record accurately reflects my personal performance of the history, physical exam, medical decision making, and the department course for this patient. I have also personally directed, reviewed, and agree with the discharge instructions and disposition. Disposition - Clinical Impression Clinical Impression: Syncope - Patient ED Disposition Is Patient to be Admitted: No Counseled Patient/Family Regarding: Studies Performed, Diagnosis, Need For Followup - Disposition Referrals: Dean Floyd MD [Staff Provider] - Disposition: Routine/Home Disposition Time: 10:17 Condition: FAIR Instructions: Syncope (Fainting) Print Language: YAKUT
[2018-08-04 07:58] LABS: BASO # 0.1 K/uL (0.0-0.2); EOS # 0.4 K/uL (0.0-0.7); EOS % 5.5 % (0.0-4.0); HEMOGLOBIN 12.2 g/dL (12.0-16.0); LYMPH # 1.9 K/uL (1.0-4.3); MEAN CELL VOLUME 91.5 fl (81.0-99.0); MEAN CORPUSCULAR HEMOGLOBIN 30.6 pg (27.0-31.0); MEAN CORPUSCULAR HGB CONC 33.4 g/dL (33.0-37.0); MEAN PLATELET VOLUME 7.7 fl (7.2-11.7); MONO # 0.4 K/uL (0.0-0.8); MONO % 6.7 % (0.0-10.0); NEUT # 3.8 K/uL (1.8-7.0); NEUT % 57.8 % (50.0-75.0); RBC 3.98 Mil/uL (3.80-5.20); RED CELL DISTRIBUTION WIDTH 13.5 % (11.5-14.5); WHITE BLOOD COUNT 6.6 K/uL (4.8-10.8)
[2018-08-04 08:16] LABS: ALB/GLOB RATIO 1.1 (1.0-2.1); ALBUMIN 3.6 g/dL (3.5-5.0); ALT/SGPT 40 U/L (9-52); AST/SGOT 41 U/L (14-36); BLOOD UREA NITROGEN 21 mg/dl (7-17); CALCIUM 9.4 mg/dL (8.4-10.2); GFR NON-AFRICAN AMERICAN > 60
[2018-08-04] MEDS ORDERED: Iohexol 300 100 ML IJ ONE (08:25)
[2018-08-04] MEDS ORDERED: Sodium Chloride 0.9% 50 ML IV ONE (08:25)
--- NOTE | 2018-08-04 09:27 | CARD ---
APPROVED REPORT Date of service: 08/04/2018 EKG Measurement Heart [id number] <Conclusion> Normal sinus rhythm Left axis deviation Low voltage QRS late transition Abnormal ECG
--- NOTE | 2018-08-04 09:43 | CT ---
Date of service: 2018-08-04 08:53:20 PROCEDURE: CT HEAD WITHOUT CONTRAST. HISTORY: r/o bleed COMPARISON: None available. TECHNIQUE: Axial computed tomography images were obtained through the head/brain without intravenous contrast. Radiation dose: Total exam DLP = 707.06 mGy-cm. This CT exam was performed using one or more of the following dose reduction techniques: Automated exposure control, adjustment of the mA and/or kV according to patient size, and/or use of iterative reconstruction technique. FINDINGS: HEMORRHAGE: No intracranial hemorrhage. BRAIN: No mass effect or edema. Minimal chronic periventricular white matter ischemic change adjacent to the frontal horns of the lateral ventricles. No evidence of acute infarct. VENTRICLES: Unremarkable. No hydrocephalus. CALVARIUM: Unremarkable. PARANASAL SINUSES: Minimal chronic ethmoid and right maxillary sinusitis. MASTOID AIR CELLS: Unremarkable as visualized. No inflammatory changes. OTHER FINDINGS: None. IMPRESSION: No intracranial mass, hemorrhage or evidence of acute infarct. Minimal chronic white matter ischemic change. Minimal chronic paranasal sinusitis.
--- NOTE | 2018-08-04 09:55 | CT ---
Date of service: 08/04/2018 PROCEDURE: CT Abdomen and Pelvis with contrast HISTORY: Abd pain COMPARISON: None. TECHNIQUE: Contrast dose: 95 cc Omnipaque 300 Radiation dose: Total exam DLP = 374.51 mGy-cm. This CT exam was performed using one or more of the following dose reduction techniques: Automated exposure control, adjustment of the mA and/or kV according to patient size, and/or use of iterative reconstruction technique. FINDINGS: LOWER THORAX: Calcified right lower lobe granuloma. No consolidations/pleural effusion. LIVER: Calcified GALLBLADDER AND BILE DUCTS: Unremarkable. PANCREAS: Unremarkable. No gross lesion or ductal dilatation. SPLEEN: Unremarkable. ADRENALS: Unremarkable. No mass. KIDNEYS AND URETERS: Unremarkable. No hydronephrosis. No solid mass. VASCULATURE: Unremarkable. No aortic aneurysm. BOWEL: Unremarkable. No obstruction. No gross mural thickening. APPENDIX: Normal appendix. PERITONEUM: Unremarkable. No free fluid. No free air. LYMPH NODES: Unremarkable. No enlarged lymph nodes. BLADDER: Unremarkable. REPRODUCTIVE: Unremarkable uterus BONES: No acute fracture. OTHER FINDINGS: None. IMPRESSION: Unremarkable examination. Minor findings as above.
--- NOTE | 2018-08-04 11:15 | RAD ---
Date of service: 08/04/2018 HISTORY: syncope COMPARISON: 06/11/2018 TECHNIQUE: Chest PA and lateral FINDINGS: LUNGS: No active pulmonary disease. PLEURA: No significant pleural effusion identified. No pneumothorax apparent. CARDIOVASCULAR: Normal. OSSEOUS STRUCTURES: No significant abnormalities. VISUALIZED UPPER ABDOMEN: Normal. OTHER FINDINGS: None. IMPRESSION: No active disease.
[2018-08-04 12:53] VITALS: BP 126/75; PULSE 74; TEMP 98.4; O2SAT 98
[2018-08-04 15:34] LABS: T4 10.2 ug/dl (5.5-11.0)
== END 2018-08-04 10:55 | disposition home or self-care (01) ==
LOC: H.ER 07:08
DX: R55 Syncope and collapse (principal); I10 Essential (primary) hypertension; I34.1 Nonrheumatic mitral (valve) prolapse
CPT/HCPCS: 70450; 71046; 74177; 80053; 84436; 84443; 85025; 93005; 99285; J7030; Q9967